=== PATIENT | male | born 1940 | race Asian ===

== ENCOUNTER 2016-12-20 18:43 | Emergency (ER) | payer MEDICARE, OTHER ==
[~2016-12-20] VITALS: Ht 165.1 cm; Wt 61.2 kg
[~2016-12-20 18:43] MED LIST: ASPI81TA2 PO; BUPR-120 PO; DIVA500T7 PO; DOCU50CA3 PO; GABA-531 PO; GLU500 PO; IBUP-1479 PO
[2016-12-20] MEDS ORDERED: AZITHROMYCIN 500 MG in D5W 250 ML IV ONE (18:45)
[2016-12-20] MEDS ORDERED: cefTRIAXone 1 GM IVPB PREMIX 50 ML IV ONE (18:45)
[2016-12-20] MEDS ORDERED: NS 1000 ML BAG IV ONE (18:45)
--- NOTE | 2016-12-20 18:45 | NUR ---
Placed in room 05 . 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 To gown for exam. Side rails up. Report given to Ketty
--- NOTE | 2016-12-20 18:46 | NUR ---
ER MD Mcknight at bedside for evaluation
[2016-12-20 18:48] VITALS: BP_SYST 155
--- NOTE | 2016-12-20 18:50 | NUR ---
Patient sent to ER from urgent care for SEPSIS evaluation. Patient C/O 2-3 days of flu like symptoms with cough and high fever. Patient is febrile, tachycardic, lethargic, will continue to monitor
[2016-12-20 18:59] LABS: BILIRUBIN,URINE NEGATIVE (NEGATIVE); BLOOD, URINE 2+ (NEGATIVE); CLARITY/URINE CLEAR (CLEAR); COLOR,URINE YELLOW (YELLOW); GLUCOSE,URINE NEGATIVE (NEGATIVE); KETONES,URINE NEGATIVE (NEGATIVE); LEUKOCYTE ESTERASE ,URINE NEGATIVE (NEGATIVE); NITRITE, URINE NEGATIVE (NEGATIVE); PROTEIN URINE NEGATIVE (NEGATIVE); UROBILINOGEN,URINE 0.2 (0.2-1.0)
[2016-12-20] MEDS ORDERED: methylPREDNISolone SOD SUCC/PF 62.5 MG/ML VIAL IVP ONE (19:00)
[2016-12-20] MEDS ORDERED: IPRATROPIUM/ALBUTEROL SULFATE 3 ML AMPUL.NEB INH ONE (19:00)
[2016-12-20 19:19] LABS: WBC,URINE 0-3 /HPF (0-3)
[2016-12-20 19:20] LABS: BACTERIA,URINE FEW /HPF (None Seen); MUCUS,URINE None Seen /LPF (None Seen)
[2016-12-20] MEDS ORDERED: AZITHROMYCIN 500 MG/VIAL (ZITHROMAX) IV ONE (19:27)
[2016-12-20 19:42] LABS: BASOPHILS % (AUTO) 0.4 % (0.0-2.0); EOSINOPHILS # (AUTO) 0.3 K/uL (0.0-0.4); EOSINOPHILS % (AUTO) 3.1 % (0.0-4.0); HEMATOCRIT 35.5 % (36-54); HEMOGLOBIN 12.2 g/dL (14.0-18.0); LYMPHOCYTES # (AUTO) 0.6 K/uL (1.0-5.5); LYMPHOCYTES % (AUTO) 6.2 % (20.5-51.5); MEAN CORPUSCULAR HEMOGLOBIN 31 pg (27-31); MEAN CORPUSCULAR HGB CONC 34 % (32-36); MEAN CORPUSCULAR VOLUME 90 fL (79.0-98.0); MONOCYTES % (AUTO) 10.7 % (1.7-9.3); NEUTROPHILS # (AUTO) 7.7 K/uL (1.8-7.7); NEUTROPHILS % (AUTO) 79.6 % (40.0-70.0); PLATELET COUNT (AUTO) 171 K/uL (130-430); RED BLOOD CELL COUNT(AUTO) 3.94 MIL/uL (4.2-6.2); RED CELL DISTRIBUTION WIDTH 12.6 % (9.0-15.0); WHITE BLOOD COUNT (AUTO) 9.6 K/uL (4.8-10.8)
[2016-12-20 19:45] LABS: ANION GAP 5 (5-15); CALCIUM 8.3 mg/dL (8.4-11.0); CHLORIDE 102 mmol/L (98-107); CREATININE 0.99 mg/dL (0.55-1.30); GLUCOSE 94 mg/dL (70-99); POTASSIUM 3.8 mmol/L (3.5-5.1); SODIUM SERUM 135 mmol/L (136-145); UREA NITROGEN, BLOOD 21 mg/dL (8-21)
[2016-12-20 19:46] LABS: ALANINE AMINOTRANSFERASE 22 U/L (12-78); ALBUMIN 3.5 g/dL (3.4-4.8); ASPARTATE AMINOTRANSFERASE 19 U/L (10-37); TOTAL BILIRUBIN 0.3 mg/dL (0.0-1.0)
[2016-12-20 19:48] LABS: PROTHROMBIN TIME 11.1 SECS (9.5-12.5)
[2016-12-20] MEDS ORDERED: TAMS0.4C96 PO (19:56)
[2016-12-20] MEDS ORDERED: FINA5TAB3 PO (19:56)
[2016-12-20] MEDS ORDERED: BACL10TA PO (19:56)
[2016-12-20] MEDS ORDERED: ATOR10TA68 PO (19:56)
[2016-12-20] MEDS ORDERED: LISI2.5T48 PO (19:56)
--- NOTE | 2016-12-20 19:57 | NUR ---
Medication reconciliation completed with information provided by - handwritten list from patient. Any prior medication reconciliation on file was reviewed and corrected.
[2016-12-20] MEDS ORDERED: ACETAMINOPHEN 325 MG TABLET PO ONE (20:00)
--- NOTE | 2016-12-20 20:49 | NUR ---
Patient calm in bed, states that he feels much better.
[2016-12-20 21:41] VITALS: BP_SYST 122
--- NOTE | 2016-12-20 21:41 | NUR ---
Patient given written and verbal discharge instructions and verbalizes understanding. ER MD Hallman discussed with patient the results and treatment provided. Patient in stable condition. ID arm band removed. IV catheter removed intact and dressing applied, no active bleeding. Rx of zithromax given. Patient educated on pain management and to follow up with PMD. Pain Scale 0/10. Opportunity for questions provided and answered. Patient advised to return to ER if symptoms worsens.
== END 2016-12-20 21:41 | disposition home or self-care (01) ==
LOC: SED 18:43
DX: R06.02 Shortness of breath (principal); R00.0 Tachycardia, unspecified; E11.9 Type 2 diabetes mellitus without complications
CPT/HCPCS: 36415; 71010; 80053; 81000; 83605; 83880; 84484; 85025; 85610; 85730; 87040; 93005; 94640; 96365; 96367; 96375; 99285; J0456; J0696; J2930; J7030; J7060

== ENCOUNTER 2017-02-10 19:35 | Emergency (ER) | payer OTHER ==
[~2017-02-10] VITALS: Ht 165.1 cm; Wt 59.0 kg
[~2017-02-10 19:35] MED LIST changes: -ASPI81TA2 PO; +ATOR10TA68 PO; +BACL10TA PO; -BUPR-120 PO; -DIVA500T7 PO; -DOCU50CA3 PO; +FINA5TAB3 PO; -IBUP-1479 PO; +LISI2.5T48 PO; +TAMS0.4C96 PO
[2017-02-10 19:47] VITALS: BP_SYST 150
[2017-02-10 21:40] VITALS: BP_SYST 140
== END 2017-02-10 21:40 | disposition home or self-care (01) ==
LOC: SED 19:35
DX: L03.115 Cellulitis of right lower limb (principal); R21 Rash and other nonspecific skin eruption; E11.9 Type 2 diabetes mellitus without complications
CPT/HCPCS: 99283